=== PATIENT | male | born 1995 | race Hispanic/Latino ===

== ENCOUNTER 2020-04-05 12:12 | Emergency (ER) | payer SELFPAY ==
[2020-04-05 13:34] LABS: Absolute Lymphocytes (CBC) 1.7 K/uL (0.7-4.9); Basophils % 0.6 % (0-1.3); Hematocrit 46.1 % (39.6-49.0); Lymphocytes % 21.3 % (15.3-44.8); MPV 8.7 fL (7.6-11.3); RBC Red Blood Cell Count 4.86 M/uL (4.33-5.43)
--- NOTE | 2020-04-05 13:41 | RAD REPORT ---
EXAM DESCRIPTION: CT - Head C Spine Cap W Con - 04/05/2020 1:18 pm CLINICAL HISTORY: PAIN, fall 8 feet from a tree, loss of consciousness, head and neck pain, chest an d abdomen pain COMPARISON: No comparisons TECHNIQUE: Axial [address] head images were obtained. Axial [address] cervical spine images were obtaine d with sagittal and coronal reconstruction images reviewed. During dynamic enhancement of 100mL non-i onic contrast, axial 5 mm images of the chest, abdomen and pelvis were obtained. Biphasic technique p erformed of the abdomen and pelvis. All CT scans are performed using dose optimization technique as appropriate and may include automated exposure control or mA/KV adjustment according to patient size. FINDINGS: No intracranial hemorrhage, mass or edema. No midline shift or abnormal fluid collection. Mastoid air cells and paranasal sinuses are clear of acute finding. No skull fracture. CT cervical spine imaging shows normal height. Normal alignment of the vertebrae. No disc space narro wing. No paraspinal mass or hematoma seen. Central canal detail is inherently limited. Concerns for t raumatic disc herniation or traumatic cord injury can be further addressed with MR imaging. CT chest shows no pneumothorax, pulmonary contusion or pleural fluid collection. No mediastinal hemat breanne and the aorta and pulmonary arteries are unremarkable. No chest will mass or abnormal axillary fi nding. No displaced rib fracture or other significant bony finding. CT abdomen and pelvis show no injury to solid abdominal viscera. Gallbladder and biliary tree are unr emarkable. No bowel injury or significant finding. No free air, free fluid or abnormal stranding. No urinary bladder abnormality. No significant bony finding. No significant vascular finding. IMPRESSION: No significant CT Head finding. No significant CT Cervical Spine finding. No significant CT Chest finding. No significant CT Abdomen and Pelvis finding.
--- NOTE | 2020-04-05 13:48 | RAD REPORT ---
EXAM DESCRIPTION: RAD - Elbow Right 2 View - 04/05/2020 1:27 pm CLINICAL HISTORY: Right elbow pain FINDINGS: A limited two view series No fracture or dislocation seen
[2020-04-05 13:50] LABS: Potassium 4.4 mmol/L (3.5-5.1)
--- NOTE | 2020-04-05 14:13 | ER ---
Nurse's Notes [facility] Name: Marcelo Hays Age: 24 yrs Sex: Male : 1995 Arrival Date: 04/05/2020 Time: 12:17 Bed 3 Private MD: Diagnosis: Contusion of lower back and pelvis;Contusion of right elbow;Superficial injury of head Presentation: 04/05 12:46 Chief complaint: Patient states: was working on a tree cutting limbs and fell approx. 8 em feet onto back, pt report LOC, by standards state he was out for about 1 minute, also reports pain in the back of the head, denies neck pain. Coronavirus screen: Patient denies a cough. Patient denies shortness of breath or difficulty breathing. Patient denies measured and/or subjective temperature greater than 100.4F prior to today's visit. Patient denies travel on a cruise ship or to a country the [facility] currently lists as an affected area. Patient denies contact with known and/or suspected case of COVID-19. Ebola Screen: Patient negative for fever greater than or equal to 101.5 degrees Fahrenheit, and additional compatible Ebola Virus Disease symptoms Patient denies exposure to infectious person. Patient denies travel to an Ebola-affected area in the 21 days before illness onset. No symptoms or risks identified at this time. Initial Sepsis Screen: Does the patient meet any 2 criteria? No. Patient's initial sepsis screen is negative. Does the patient have a suspected source of infection? No. Patient's initial sepsis screen is negative. Risk Assessment: Do you want to hurt yourself or someone else? Patient reports no desire to harm self or others. Onset of symptoms was April 05, 2020. 12:46 Method Of Arrival: Ambulatory em 12:46 Acuity: SMITA 3 em 12:55 Care prior to arrival: None. Mechanism of Injury: Fall tree approximately 8 feet. ph Trauma event details: Injury occurred in the [facility], Injury occurred: at home. Injury occurred: April 05, 2020. Trauma Activation: Physician: ED Physician; Name: Hanna; Notified At: 12:50; Arrived At: 12:55 Physician: General Surgeon; Name: ; Notified At: 12:50; Arrived At: Physician: Radiology; Name: Trey; Notified At: 12:50; Arrived At: Physician: Respiratory; Name: ; Notified At: 12:50; Arrived At: Physician: Lab; Name: ; Notified At: 12:50; Arrived At: Historical: - Allergies: 12:49 No Known Allergies; em - Home Meds: 12:49 None [Active]; em - PMHx: 12:49 None; em - PSHx: 12:49 None; em - Immunization history:: Adult Immunizations up to date. - Social history:: Smoking status: Patient denies any tobacco usage or history of. - Immunization history: Last tetanus immunization: unknown. - Family history:: not pertinent. - Hospitalizations: : No recent hospitalization is reported. Screenin:56 Abuse screen: Denies threats or abuse. Denies injuries from another. Nutritional ph screening: No deficits noted. Tuberculosis screening: No symptoms or risk factors identified. Fall Risk None identified. Primary Survey: 12:54 NO uncontrolled hemorrhage observed. A: The patient is alert. Airway: patent, No ph supplemental oxygen in use on arrival. Oral cavity: clear, Trachea midline. Breathing/Chest: Respiratory pattern: regular, Respiratory effort: spontaneous, unlabored, Chest inspection: symmetrical rise and fall of the chest. Circulation: Skin color: pink, Skin temperature: warm, dry. Disability Alert. Exposure/Environment: There is no evidence of uncontrolled external bleeding. No obvious injuries are noted at this time. 14:47 Reassessment Airway Airway Breathing/Chest Respiratory pattern Regular Respiratory ph effort Spontaneous Unlabored Circulation Color [place] Temperature Warm Dry Disability Alert. Assessment: 12:55 General: Appears in no apparent distress. uncomfortable, slender, Behavior is calm, ph cooperative, appropriate for age. Pain: Complains of pain in thoracic area and lumbar area and R elbow. Neuro: Level of Consciousness is awake, alert, obeys commands, Oriented to person, place, time, situation. Respiratory: Airway is patent Respiratory effort is even, unlabored. Derm: Skin is intact, is healthy with good turgor, Skin is pink, warm \T\ dry. Musculoskeletal: Circulation, motion, and sensation intact. Range of motion: intact in all extremities. 13:45 Reassessment: Patient appears in no apparent distress at this time. Patient and/or ph family updated on plan of care and expected duration. Pain level reassessed. Patient is alert, oriented x 3, equal unlabored respirations, skin warm/dry/pink. 14:44 Reassessment: Patient appears in no apparent distress at this time. Patient and/or ph family updated on plan of care and expected duration. Pain level reassessed. Patient is alert, oriented x 3, equal unlabored respirations, skin warm/dry/pink. Vital Signs: 12:46 BP 103 / 57; Pulse 62; Resp 18; Temp 98.8; Pulse Ox 100% on R/A; Weight 61.23 kg; Pain em 10/10; 14:00 BP 110 / 58; Pulse 64; Resp 18; Temp 98.0; Pulse Ox 100% on R/A; ph David Coma Score: 14:45 Eye Response: spontaneous(4). Verbal Response: oriented(5). Motor Response: obeys ph commands(6). Total: 15. Trauma Score (Adult): 14:45 Eye Response: spontaneous(1); Verbal Response: oriented(1); Motor Response: obeys ph commands(2); Systolic BP: > 89 mm Hg(4); Respiratory Rate: 10 to 29 per min(4); David Score: 15; Trauma Score: 12 ED Course: 12:17 Patient arrived in ED. bp1 12:49 Triage completed. em 12:49 Arm band placed on. em 12:50 Ese Ivy, RN is Primary Nurse. ph 12:52 Julio César Ferreira MD is Attending Physician. rn 12:58 Inserted saline lock: 20 gauge in left antecubital area, using aseptic technique. Blood ph collected. Patient maintains SpO2 saturation greater than 95% on room air. 13:00 Patient has correct armband on for positive identification. Bed in low position. Call ph light in reach. Side rails up X 1. Pulse ox on. NIBP on. 13:00 Thermoregulation: warm blanket given to patient. ph 13:18 CT Traumagram (Head C Spine CAP W Con) In Process Unspecified. EDMS 13:24 XRAY Elbow RIGHT 2 view In Process Unspecified. EDMS 14:46 No provider procedures requiring assistance completed. IV discontinued, intact, ph bleeding controlled, No redness/swelling at site. Pressure dressing applied. Administered Medications: 14:40 Drug: Homer 10 mg-325 mg 1 tabs Route: PO; ph 14:44 Follow up: Response: No adverse reaction; Medication administered at discharge. ph 14:43 Not Given (Other Intervention Used): Demerol 25 mg IVP once; RASS on ADMIN: Combtv4, ph Very Agttd3, Agttd2, Rstlss1, AlertClm0, Drwsy-1, Lt Sdtn-2, Mod Sdtn-3, Dp Sdtn-4, UnArsble-5 Intake: 14:45 PO: 0ml; Total: 0ml. ph Output: 14:45 Urine: 0ml; Total: 0ml. ph Outcome: 14:12 Discharge ordered by . rn 14:46 Discharged to home ambulatory. ph 14:46 Condition: good 14:46 Discharge instructions given to patient, Instructed on discharge instructions, follow up and referral plans. Demonstrated understanding of instructions, follow-up care. 14:46 Patient's length of stay was not longer than 2 hours. 14:47 Patient left the ED. ph Signatures: Dispatcher [employer] Tod Saenz, RN Julio César Yanez MD MD rn Hall, Patricia, RN RN ph [place], Brittany bp1
--- NOTE | 2020-04-05 14:13 | EDPHYS ---
Physician Documentation [facility] Name: Marcelo Hays Age: 24 yrs Sex: Male : 1995 Arrival Date: 04/05/2020 Time: 12:17 Bed 3 Private MD: ED Physician Julio César Ferreira HPI: 04/05 13:44 This 24 yrs old Male presents to ER via Ambulatory with complaints of Fall rn Injury. 13:44 Details of fall: The patient fell from a height, out of a tree, approximately 8 feet. rn Onset: The symptoms/episode began/occurred just prior to arrival. Associated injuries: The patient sustained injury to the head, injury to the low back. Severity of symptoms: At their worst the symptoms were mild, in the emergency department the symptoms are unchanged. The patient has not experienced similar symptoms in the past. Reports fall from tree, approx 8 ft, landed on back, hit head, thinks may have briefly lost consciousness, reports pain to right elbow, lower back, and back of head. . Historical: - Allergies: 12:49 No Known Allergies; em - Home Meds: 12:49 None [Active]; em - PMHx: 12:49 None; em - PSHx: 12:49 None; em - Immunization history:: Adult Immunizations up to date. - Social history:: Smoking status: Patient denies any tobacco usage or history of. - Immunization history: Last tetanus immunization: unknown. - Family history:: not pertinent. - Hospitalizations: : No recent hospitalization is reported. ROS: 13:44 Constitutional: Negative for fever, chills, and weight loss, Eyes: Negative for injury, rn pain, redness, and discharge, Neck: Negative for injury, pain, and swelling, Cardiovascular: Negative for chest pain, palpitations, and edema, Respiratory: Negative for shortness of breath, cough, wheezing, and pleuritic chest pain, Abdomen/GI: Negative for abdominal pain, nausea, vomiting, diarrhea, and constipation, Back: + injury and pain to lower back MS/Extremity: Negative for injury and deformity, Skin: Negative for injury, rash, and discoloration, Neuro: Negative for weakness, numbness, tingling, and seizure. Exam: 13:44 Constitutional: This is a well developed, well nourished patient who is awake, alert, rn and in no acute distress. Ambulatory to room. Head/Face: Normocephalic, atraumatic. Eyes: Pupils equal round and reactive to light, extra-ocular motions intact. Lids and lashes normal. Conjunctiva and sclera are non-icteric and not injected. Cornea within normal limits. Periorbital areas with no swelling, redness, or edema. Neck: NO midline tenderness Chest/axilla: Normal chest wall appearance and motion. Nontender with no deformity. No lesions are appreciated. Cardiovascular: Regular rate and rhythm. No pulse deficits. Respiratory: No increased work of breathing, no retractions or nasal flaring. Abdomen/GI: soft, non-tender Back: + bilateral loewr perilumbar tenderness, no spinal tenderness MS/ Extremity: Pulses equal, no cyanosis. Neurovascular intact. Full, normal range of motion. Equal circumference. Neuro: Awake and alert, GCS 15, oriented to person, place, time, and situation. Cranial nerves II-XII grossly intact. Motor strength 5/5 in all extremities. Sensory grossly intact. Cerebellar exam normal. Normal gait. Vital Signs: 12:46 BP 103 / 57; Pulse 62; Resp 18; Temp 98.8; Pulse Ox 100% on R/A; Weight 61.23 kg; Pain em 10/10; 14:00 BP 110 / 58; Pulse 64; Resp 18; Temp 98.0; Pulse Ox 100% on R/A; ph [place] Coma Score: 14:45 Eye Response: spontaneous(4). Verbal Response: oriented(5). Motor Response: obeys ph commands(6). Total: 15. Trauma Score (Adult): 14:45 Eye Response: spontaneous(1); Verbal Response: oriented(1); Motor Response: obeys ph commands(2); Systolic BP: > 89 mm Hg(4); Respiratory Rate: 10 to 29 per min(4); Ashley Score: 15; Trauma Score: 12 MDM: 12:52 Patient medically screened. rn 14:11 Differential diagnosis: closed head injury, contusion, fracture, sprain, strain. Data rn reviewed: vital signs, nurses notes, radiologic studies, CT scan, plain films, and as a result, I will discharge patient. Counseling: I had a detailed discussion with the patient and/or guardian regarding: the historical points, exam findings, and any diagnostic results supporting the discharge/admit diagnosis, lab results, radiology results, the need for outpatient follow up, to return to the emergency department if symptoms worsen or persist or if there are any questions or concerns that arise at home. Special discussion: I discussed with the patient/guardian in detail that at this point there is no indication for admission to the hospital. It is understood, however, that if the symptoms persist or worsen the patient needs to return immediately for re-evaluation. ED course: CT head/cspine/chest/abdomen/pelvis neg for acute traumatic finding, xray elbow neg, will dc home as back contusion. . 04/05 13:01 Order name: Basic Metabolic Panel; Complete Time: 14:10 ph 04/05 13:01 Order name: CBC with Diff; Complete Time: 14:10 ph 04/05 12:59 Order name: CT Traumagram (Head C Spine CAP W Con); Complete Time: 14:10 ph 04/05 13:06 Order name: XRAY Elbow RIGHT 2 view; Complete Time: 14:10 rn 04/05 13:03 Order name: IV Start; Complete Time: 13:07 rn Administered Medications: 14:40 Drug: Emmet 10 mg-325 mg 1 tabs Route: PO; ph 14:44 Follow up: Response: No adverse reaction; Medication administered at discharge. ph 14:43 Not Given (Other Intervention Used): Demerol 25 mg IVP once; RASS on ADMIN: Combtv4, ph Very Agttd3, Agttd2, Rstlss1, AlertClm0, Drwsy-1, Lt Sdtn-2, Mod Sdtn-3, Dp Sdtn-4, UnArsble-5 Disposition: 04/05/20 14:12 Discharged to Home. Impression: Contusion of lower back and pelvis, Contusion of right elbow, Superficial injury of head. - Condition is Stable. - Discharge Instructions: Contusion, Head Injury, Adult, Elbow Contusion. - Medication Reconciliation Form, Thank You Letter, Antibiotic Education, Prescription Opioid Use form. - Follow up: Private Physician; When: As needed; Reason: Recheck today's complaints, Re-evaluation by your physician. - Problem is new. - Symptoms have improved. Signatures: Dispatcher [employer] EDMS Mays, Tod, Julio César Yanez RN, MD MD rn Hall, Patricia, RN RN ph Corrections: (The following items were deleted from the chart) 14:47 14:12 04/05/2020 14:12 Discharged to Home. Impression: Contusion of lower back and ph pelvis; Contusion of right elbow; Superficial injury of head. Condition is Stable. Forms are Medication Reconciliation Form, Thank You Letter, Antibiotic Education, Prescription Opioid Use. Follow up: Private Physician; When: As needed; Reason: Recheck today's complaints, Re-evaluation by your physician. Problem is new. Symptoms have improved. rn
[2020-04-05] MEDS ORDERED: HYDROCODONE/APAP 10/325 TAB ONE (14:44)
--- OUTSIDE RECORDS SUMMARY | 2020-04-05 16:19 | XMS REPORT | Continuity of Care Document ---
:1995 Author Organization [facility] Care Team Providers Name Role Phone [facility] Unavailable Un available Problems Problem Status Onset Classification Date Comments Sourc e Date Reported Puncture wound 12/04/2018 [facility] with [facility] body of right forearm, initial encounter Puncture wound 12/04/2018 [facility] without foreign 8 [facility]osp [facility] body of right forearm, initial encounter Superficial 12/04/2018 [facility] foreign body of 8 [facility] right forearm, initial encounter ARM INJURY Active [facility] Other foreign 12/04/2018 [facility] ty body or object [facility] entering through skin, initial encounter Medications Medication Details Route Status Patient Ordering Order Source Instructions Provider Date Cephalexin 500 mg = 1 No Longer 05/17/20 [facility] 500 MG Oral cap, PO, Active 18 Hospital Capsule QID, X 5 [Keflex] day, # 20 cap, 0 Refill(s) Allergies, Adverse Reactions, Alerts No Known Medication Allergies Immunizations Immunization Date Site Status Last Comments Source Given Updated diphtheria/pertus Right completed Marc [facility] sis, acel/tetanus 8 deltoid [facility] adult Results No Data Provided for This Section Pathology Reports No Data Provided for This Section Diagnostic Reports No Data Provided for This Section Consultation Notes No Data Provided for This Section Discharge Summaries No Data Provided for This Section History and Physicals No Data Provided for This Section Vital Signs Vital Sign Value Date Comments Source Systolic (mm Hg) 120 05/18/2018 [facility] Diastolic (mm Hg) 71 05/18/2018 [facility] Heart Rate 60 05/18/2018 [facility] Respitory Rate 20 05/18/2018 [facility] Temperature Oral (F) 98 F 05/17/2018 [facility] Heart Rate 63 05/17/2018 [facility] Systolic (mm Hg) 117 05/17/2018 [facility] Diastolic (mm Hg) 71 05/17/2018 [facility] Respitory Rate 20 [facility]17[facility] Location Encounter Encounter Reason Attending ADM DC Stat us Source Details Type Number For Provider Date Date Visit [facility] Emergency [id number] Maribell 05/17 05/18 JENNIFER Cynvicenta Gutierrez /2017 [facility] Procedures No Data Provided for This Section Assessment and Plan No Data Provided for This Section Plan of Care No Data Provided for This Section Social History Social History Date Source Social History TypeResponse 05/18/2018 JENNIFER Blairy Jamarcus nichole Smoking Status Never smoker; Exposure to Tobacco Smoke None; Cigarette Smoking Last 365 Days No; Reg Smoking Cessation Counseling No entered on: 05/17/18 Family History No Data Provided for This Section Advance Directives No Data Provided for This Section Functional Status No Data Provided for This Section
[2020-04-05 23:00] VITALS: O2SAT 100
[2020-04-05 23:02] VITALS: BP 110/58; TEMP 98
== END 2020-04-05 14:47 | disposition home or self-care (01) ==
LOC: ER 12:12
DX: S00.90XA Unspecified superficial injury of unspecified part of head, initial encounter (principal); S30.0XXA Contusion of lower back and pelvis, initial encounter; S50.01XA Contusion of right elbow, initial encounter; W14.XXXA Fall from tree, initial encounter; Y93.9 Activity, unspecified; Y92.9 Unspecified place or not applicable
CPT/HCPCS: 36415; 70450; 71260; 72125; 74177; 80048; 85025; 99284; Q9967